=== PATIENT | male | born 1975 | race Caucasian/White ===

== ENCOUNTER 2019-09-10 11:33 | Emergency (ER) | payer BC ==
[~2019-09-10] VITALS: Ht 175.3 cm; Wt 83.5 kg
--- NOTE | ~2019-09-10 | EKG ---
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
[2019-09-10 13:03] LABS: ABSOLUTE NEUTROPHILS 5.7 thou/uL (1.4-8.2); EOSINOPHILS 1.6 % (0.0-3.0); HEMATOCRIT 43.5 % (42.0-52.0); HEMOGLOBIN 15.2 gm/dL (14.0-18.0); LYMPHOCYTES 13.4 % (24.0-44.0); MCH 34.1 pg (26.0-34.0); MCV 97.5 fL (80.0-100.0); MONOCYTES 6.9 % (1.0-8.0); PLATELET COUNT 329 thou/uL (150-400); POLYS 77.1 % (36.0-66.0); RBC 4.46 mil/uL (4.50-6.00); RDW 12.5 % (10.5-14.5); WBC 7.4 thou/uL (4.0-11.0)
[2019-09-10 13:44] LABS: URINE BILIRUBIN NEGATIVE (Negative); URINE BLOOD NEGATIVE (Negative); URINE CLARITY CLEAR; URINE COLOR YELLOW; URINE GLUCOSE-RANDOM* NEGATIVE (Negative); URINE KETONES TRACE (Negative); URINE LEUKOCYTES-REFLEX NEGATIVE (Negative); URINE NITRITE-REFLEX NEGATIVE (Negative); URINE PROTEIN (DIPSTICK) NEGATIVE (Negative); URINE SPECIFIC GRAVITY <= 1.005 (1.005-1.035); URINE UROBILINOGEN 0.2 E.U./dl (0.2-1.0)
[2019-09-10 14:06] LABS: ANION GAP 6 mmol/L (7-16); BUN 11 mg/dL (7-18); CALCIUM 9.4 mg/dL (8.5-10.1); CHLORIDE 99 mmol/L (98-107); CO2 29 mmol/L (21-32); CREATININE 1.1 mg/dL (0.7-1.3); GLUCOSE 93 mg/dL (74-106); POTASSIUM 4.4 mmol/L (3.5-5.1); SODIUM 134 mmol/L (136-145)
[2019-09-10 14:15] LABS: MAGNESIUM 1.8 mg/dL (1.8-2.4); TROPONIN-I <0.06 ng/mL (<0.06)
[2019-09-10] MEDS ORDERED: COZAAR 25 MG TA25 M1 PO (14:27)
[2019-09-10 14:32] VITALS: BP 152/100
--- NOTE | 2019-09-11 08:48 | EKG ---
[facility] [place] [address] ELECTROCARDIOGRAM REPORT Name: BRIANNA LEWIS Room #: DEP [facility]#: [id number] Admission: 09/10/19 Attend Phys: Discharge: 09/10/19 Date of : 77 Report #: [id number] THIS REPORT FOR: cc: FAM - Family physician unknown FAM - Family physician unknown Daniel Silverman MD [facility] THIS REPORT FOR: //name// 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: [facility] : 1975 Requested By: Lawrence Msa Order Number: [id number] MD: Daniel Silverman Measurements Intervals [place] Rate: 62 P: 45 [place]: 156 QRS: 36 QRSD: 102 T: 18 QT: 395 QTc: 401 Interpretive Statements Sinus rhythm Poor R wave progression No previous ECG available for comparison Electronically Signed On 09-11-2019 8:46:26 CDT by Daniel Silverman [email or web address] <ELECTRONICALLY SIGNED> By: Dainel Silverman MD, [facility] 09/11/19 0846 1210 1210 Daniel Silverman MD, FACC /EPI
== END 2019-09-10 14:32 | disposition home or self-care (01) ==
LOC: ER 11:33
PROVIDERS: Emergency Medicine
DX: R42 Dizziness and giddiness (principal); I10 Essential (primary) hypertension; F12.90 Cannabis use, unspecified, uncomplicated; F17.210 Nicotine dependence, cigarettes, uncomplicated; Z98.890 Other specified postprocedural states